=== PATIENT | female | born 2005 | race Caucasian/White ===

== ENCOUNTER → 2024-02-20 | Emergency (ER) | payer MEDICAID ==
[~2024-02-20] VITALS: Ht 144.8 cm; Wt 59.4 kg
[2024-02-20] MEDS: IV NS 0.9% 500 ML BAG IV ONE (11:51)
[2024-02-20 11:59] LABS: BASOPHILS % (AUTO) 0.1 % (0.0-2.0); EOSINOPHILS % (AUTO) 0.4 % (0.0-6.0); HEMATOCRIT 32 % (33-45); HEMOGLOBIN 10.8 g/dL (11.5-14.8); LYMPHOCYTES % (AUTO) 19.8 % (20.0-44.0); MEAN CORPUSCULAR HEMOGLOBIN 28 PG (26.0-33.0); MEAN CORPUSCULAR HGB CONC 34 g/dl (31.0-36.0); MEAN CORPUSCULAR VOLUME 81 fL (82-100); MONOCYTES # (AUTO) 0.5 K/uL (0.1-1.30); MONOCYTES % (AUTO) 4.8 % (2.0-12.0); NEUTROPHILS # (AUTO) 7.5 K/uL (1.8-8.9); NEUTROPHILS % (AUTO) 74.9 % (43.0-81.0); PLATELET COUNT (AUTO) 200 K/uL (150-450); RED BLOOD CELL COUNT(AUTO) 3.94 MIL/uL (4.0-5.2); RED CELL DISTRIBUTION WIDTH 13.7 % (11.5-15.0)
[2024-02-20 12:21] LABS: CALCIUM, SERUM 9.3 mg/dL (8.5-10.1); CARBON DIOXIDE 24 mmol/L (21-32); CHLORIDE 103 mmol/L (98-107); CREATININE 0.4 mg/dL (0.6-1.3); GLUCOSE 68 mg/dL (74-106); POTASSIUM 3.6 mmol/L (3.5-5.1); SODIUM SERUM 134 mmol/L (136-145); UREA NITROGEN, BLOOD 6 mg/dL (7-18)
[2024-02-20 12:30] LABS: PREGNANCY TEST URINE QUAL POSITIVE (NEGATIVE)
[2024-02-20 13:49] VITALS: BP 118/68; TEMP 98.4; O2SAT 100
== END | disposition home or self-care (01) ==
LOC: ER 11:06
DX: Z33.1 Pregnant state, incidental (principal); R10.2 Pelvic and perineal pain; Z88.0 Allergy status to penicillin
CPT/HCPCS: 99284; 76856; 93005; 85025; 80048; 84703; 36415; 84484; 86850; 84702; J7040

== ENCOUNTER 2024-06-25 02:25 | Emergency (ER) | payer MEDICAID, OTHER ==
[~2024-06-25] VITALS: Ht 149.9 cm; Wt 53.5 kg
[2024-06-25 02:37] VITALS: TEMP 98
[2024-06-25] MEDS ORDERED: KETOROLAC TROMETHAMINE INJ 30 MG/ML VIAL ONE (02:49)
[2024-06-25] MEDS: KETOROLAC TROMETHAMINE INJ 30 MG/ML VIAL IM ONE (02:53)
[2024-06-25 03:57] VITALS: BP 115/70; O2SAT 98
== END 2024-06-25 04:19 | disposition home or self-care (01) ==
LOC: ER 02:26
DX: M54.59 Other low back pain (principal); Z88.0 Allergy status to penicillin
CPT/HCPCS: 99283; 96372; J1885